=== PATIENT | female | born 1985 | race Caucasian/White ===

== ENCOUNTER → 2018-03-07 | Outpatient (CLI) | payer OTHER ==
--- NOTE | 2018-03-07 11:16 | RAD ---
History: Left knee pain, no known injury. Comparison: None. Findings: AP, lateral, and oblique views of the left knee. No acute fracture or dislocation is identified. No significant degeneration is seen. No joint effusion is appreciated. Impression: Unremarkable left knee radiographs. Electronically signed by: Morales Kirk MD (03/07/2018 11:12 AM) [id number]
== END | disposition home or self-care (01) ==
LOC: DXRAD 10:24
PROVIDERS: ATTEND Family Medicine
DX: M25.562 Pain in left knee (principal)
CPT/HCPCS: 73562